=== PATIENT | female | born 1990 | race American Indian/Alaskan Native ===

== ENCOUNTER 2016-05-20 20:44 | Outpatient (CLI) | payer MEDICAID | END 2016-05-20 23:55 | disposition home or self-care (01) | LOC: TRG 20:44 | PROVIDERS: ATTEND Obstetrics & Gynecology | DX: O62.0 Primary inadequate contractions (principal); O77.9 Labor and delivery complicated by fetal stress, unspecified; Z3A.38 38 weeks gestation of pregnancy ==

== ENCOUNTER 2018-09-06 15:35 | Emergency (ER) | payer MEDICAID, OTHER ==
--- NOTE | 2018-09-06 16:12 | Emergency Department Report ---
Chief Complaint: Medical Clearance Stated Complaint: COLD THEN HOT Time Seen by Provider: 09/06/18 16:09 - HPI History of Present Illness: This is a 28 y.o. female that presents to the Er with a fever and myalgia since this morning. Current cigarette smoker 3-4 per day. Reports fever, chills, and myalgia. Denies coryza, n/v/d, abdominal pain, or chest pain. - Exam Vital Signs: Vital Signs 09/06/18 16:08 Temperature 100.1 F H Pulse Rate 98 H Respiratory 18 Rate Blood Pressure 125/87 O2 Sat by Pulse 98 Oximetry MSE screening note: Focused history and physical exam performed. Due to findings the following was ordered: CXR ACC for further evaluation. ED Disposition for MSE Condition: Stable
--- NOTE | 2018-09-06 16:54 | XRay Report ---
PROCEDURE: XR CHEST ROUTINE 2V TECHNIQUE: PA and lateral chest radiographs were obtained. HISTORY: cough and fever COMPARISONS: None. FINDINGS: Heart: Normal. Mediastinum/Vessels: Normal. Lungs/Pleural space: Normal. Bony thorax: No acute osseous abnormality. IMPRESSION: Normal examination. This document is electronically signed by Cal Roca MD., Sep 06 2018 04:52:40 PM ET
[2018-09-06] MEDS ORDERED: IBUPROFEN PO ONE (17:10)
--- NOTE | 2018-09-06 17:10 | Emergency Department Report ---
Minor Respiratory - HPI Chief Complaint: Medical Clearance Stated Complaint: COLD THEN HOT Time Seen by Provider: 09/06/18 16:09 Duration: 2 Days Severity: mild Minor Respiratory: Yes Able to Tolerate Fluids, No Rhinorrhea, No Sore Throat, No Ear Pain, No Cough, No Sick Contacts, No Hemoptysis, No Chest Pain, No Shortness of Breath, No Fever Other History: 28 yo comes in with fever and general feeling bad. here with small child. no cough. no abd pain. no dysuria. no vag dc. ED Review of Systems ROS: Stated complaint: COLD THEN HOT Other details as noted in HPI Comment: All other systems reviewed and negative ED Past Medical Hx - Past Medical History Previous Medical History?: No Hx Hypertension: No Hx Diabetes: No Hx Deep Vein Thrombosis: No Hx Renal Disease: No Hx Sickle Cell Disease: No Hx Seizures: No Hx Asthma: No - Surgical History Past Surgical History?: No - Family History Family history: no significant - Social History Smoking Status: Current Every Day Smoker Substance Use Type: None Minor Respiratory Exam - Exam General: Vital signs noted. No distress. Alert and acting appropriately. HEENT: Yes Moist Mucous Membranes, No Pharyngeal Erythema, No Pharyngeal Exudates, No Rhinorrhea, No Conjuctival Injection, No Frontal Tenderness, No Maxillary Tenderness Ear: Neither TM Bulge, Neither TM Erythema, Neither EAC Pain, Neither EAC Discharge Neck: Yes Supple, No Adenopathy Lungs: Yes Good Air Exchange, No Wheezes, No Ronchi, No Stridor, No Cough, No Labored Respirations, No Retractions, No Use of Accessory Muscles, No Other Abno rmal Lung Sounds Heart: Yes Regular, No Murmur Abdomen: Yes Normal Bowel Sounds, No Tenderness, No Peritoneal Signs Skin: No Rash, No Edema Neurologic: Alert and oriented, no deficits. Musculoskeletal: Unremarkable. ED Course Vital Signs 09/06/18 16:08 Temperature 100.1 F H Pulse Rate 98 H Respiratory 18 Rate Blood Pressure 125/87 O2 Sat by Pulse 98 Oximetry ED Medical Decision Making - Radiology Data Radiology results: report reviewed, image reviewed - Medical Decision Making Vital Signs (72 hours) 09/06/18 16:08 Temperature 100.1 F H Pulse Rate 98 H Respiratory 18 Rate Blood Pressure 125/87 O2 Sat by Pulse 98 Oximetry medicated for fever dec temp with motrin xray neg ambulatory and taking po in ER dc home with dc plan of care. Critical care attestation.: If time is entered above; I have spent that time in minutes in the direct care of this critically ill patient, excluding procedure time. ED Disposition Clinical Impression: Viral illness, Fever Disposition: DC-01 TO HOME OR SELFCARE Is pt being admited?: No Does the pt Need Aspirin: No Condition: Stable Instructions: Fever in Adults (ED) Additional Instructions: DIET TOLERATED MEDS ORDERED TODAY IN ER FOLLOW INSTRUCTIONS ON THE BOTTLE FOLLOW UP PCP WITHIN 48 HOURS TO ENSURE YOU ARE GETTING BETTER ACTIVITY TOLERATED MOTRIN OR TYLENOL FOR PAIN OR FEVER RETURN TO THE ER FOR WORSENING SYMPTOMS NOT RELIEVED BY YOUR MEDICATIONS. IF IN 24 HOURS YOU FEEL WORSE THEN START THE ANTIBIOTIC Referrals: HEYDI JACOBO MD [Primary Care Provider] - 3-5 Days Time of Disposition: 18:27
[2018-09-06 18:46] LABS: HCG Qualitative,Urine Negative (Negative)
[2018-09-06 18:49] LABS: Bacteria,Urine 1+ /HPF (Negative); Bilirubin,Urine NEG (Negative); Blood,Urine NEG (Negative); Color,Urine Yellow (Yellow); Mucus,Urine FEW /HPF; Protein,Urine <15 mg/dL mg/dL (Negative)
[2018-09-06 18:51] VITALS: BP 127/82
== END 2018-09-06 18:50 | disposition home or self-care (01) ==
LOC: ED 15:35
DX: B34.9 Viral infection, unspecified (principal); F17.200 Nicotine dependence, unspecified, uncomplicated
CPT/HCPCS: 71046; 81001; 81025

== ENCOUNTER 2019-09-07 01:02 | Emergency (ER) | payer OTHER ==
--- NOTE | 2019-09-07 02:15 | XRay Report ---
Left ankle-3 views Left foot-3 views INDICATION: Fall today with generalized ankle and foot pain. COMPARISON: None. IMPRESSION: Mild soft tissue swelling about the ankle with no acute fracture or malalignment. Mild h allux valgus deformity with otherwise unremarkable appearance of the foot. No significant DJD. Signer Name: Bret Swift MD Signed: 09/07/2019 2:10 AM Workstation Name: [email or web address]
[2019-09-07] MEDS ORDERED: HYDROcodone/ACETAMINOPHEN 7.5-325MG TAB PO ONE (03:27)
[2019-09-07] MEDS ORDERED: IBUPROFEN 600 MG TAB PO ONE (03:27)
[2019-09-07] MEDS ORDERED: ONDANSETRON 4 MG ODT TAB PO ONE (03:27)
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
[2019-09-07 06:17] VITALS: BP 122/56
== END 2019-09-07 04:09 | disposition home or self-care (01) ==
LOC: ED 01:02
DX: S93.402A Sprain of unspecified ligament of left ankle, initial encounter (principal); S93.602A Unspecified sprain of left foot, initial encounter; Z79.1 Long term (current) use of non-steroidal anti-inflammatories (NSAID); Z79.2 Long term (current) use of antibiotics; Z79.899 Other long term (current) drug therapy; W18.09XA Striking against other object with subsequent fall, initial encounter; Y93.89 Activity, other specified; Y92.89 Other specified places as the place of occurrence of the external cause; Y99.8 Other external cause status
CPT/HCPCS: Q0162

== ENCOUNTER 2020-01-20 16:40 | Emergency (ER) | payer SELFPAY ==
[2020-01-20 16:59] VITALS: BP 127/75
--- NOTE | 2020-01-20 18:16 | Emergency Department Report ---
- General Chief complaint: Skin/Abscess/Foreign Body Stated complaint: BUG BITE Time Seen by Provider: 01/20/20 17:36 Source: patient Mode of arrival: Ambulatory Limitations: No Limitations - History of Present Illness Initial comments: 29-year-old female states she woke up with a insect bite to her left neck. She reports pain and swelling to the left neck she denies fever and chills she has no difficulty swallowing no difficulty with breathing no lip or tongue swelling MD complaint: insect bite/sting Location: neck Severity: mild Improves with: none Worsens with: none Context: none Associated symptoms: denies other symptoms Treatments Prior to Arrival: none - Related Data Previous Rx's Medication Instructions Recorded Last Taken Type Amoxicillin [Trimox CAP] 500 mg PO BID #20 capsule 09/06/18 Unknown Rx Cyclobenzaprine [Flexeril] 10 mg PO Q8H PRN #15 tablet 09/07/19 Unknown Rx Ibuprofen [Motrin] 800 mg PO Q8HR PRN #24 tablet 09/07/19 Unknown Rx Cephalexin [Keflex] 750 mg PO BID 7 Days #14 capsule 01/20/20 Unknown Rx Allergies Allergy/AdvReac Type Severity Reaction Status Date / Time No Known Allergies Allergy Verified 09/06/18 15:49 Abscess Boil HPI - HPI Chief Complaint: Skin/Abscess/Foreign Body Stated Complaint: BUG BITE Time Seen by Provider: 01/20/20 17:36 Home Medications: Previous Rx's Medication Instructions Recorded Last Taken Type Amoxicillin [Trimox CAP] 500 mg PO BID #20 capsule 09/06/18 Unknown Rx Cyclobenzaprine [Flexeril] 10 mg PO Q8H PRN #15 tablet 09/07/19 Unknown Rx Ibuprofen [Motrin] 800 mg PO Q8HR PRN #24 tablet 09/07/19 Unknown Rx Cephalexin [Keflex] 750 mg PO BID 7 Days #14 capsule 01/20/20 Unknown Rx Allergies/Adverse Reactions: Allergies Allergy/AdvReac Type Severity Reaction Status Date / Time No Known Allergies Allergy Verified 09/06/18 15:49 ED Review of Systems ROS: Stated complaint: BUG BITE Other details as noted in HPI Comment: All other systems reviewed and negative Constitutional: denies: chills, fever ENT: denies: ear pain, throat pain, dental pain, congestion Respiratory: denies: cough, shortness of breath, wheezing Cardiovascular: denies: chest pain, palpitations, edema, syncope Endocrine: denies: excessive sweating, flushing, increased urine, unexplained weight gain Gastrointestinal: denies: abdominal pain, nausea, constipation, hematemesis Genitourinary: denies: dysuria, frequency Skin: denies: rash, change in color Neurological: denies: headache, weakness, numbness, paresthesias ED Past Medical Hx - Past Medical History Previous Medical History?: No Hx Hypertension: No Hx Diabetes: No Hx Deep Vein Thrombosis: No Hx Renal Disease: No Hx Sickle Cell Disease: No Hx Seizures: No Hx Asthma: No - Surgical History Past Surgical History?: No - Social History Smoking Status: Never Smoker Substance Use Type: Alcohol - Medications Home Medications: Home Medications Medication Instructions Recorded Confirmed Last Taken Type Amoxicillin [Trimox CAP] 500 mg PO BID #20 capsule 09/06/18 Unknown Rx Cyclobenzaprine [Flexeril] 10 mg PO Q8H PRN #15 tablet 09/07/19 Unknown Rx Ibuprofen [Motrin] 800 mg PO Q8HR PRN #24 tablet 09/07/19 Unknown Rx Cephalexin [Keflex] 750 mg PO BID 7 Days #14 capsule 01/20/20 Unknown Rx ED Physical Exam - General Limitations: No Limitations General appearance: alert, in no apparent distress - Head Head exam: Present: atraumatic - Eye Eye exam: Present: normal appearance - ENT ENT exam: Present: normal exam, normal orophraynx, mucous membranes moist - Neck Neck exam: Present: other (left neck insect bite. + ) - Respiratory Respiratory exam: Present: normal lung sounds bilaterally. Absent: respiratory distress - Cardiovascular Cardiovascular Exam: Present: regular rate, normal heart sounds - Extremities Exam Extremities exam: Present: normal inspection, normal capillary refill - Back Exam Back exam: Present: normal inspection, full ROM - Neurological Exam Neurological exam: Present: alert, oriented X3 - Psychiatric Psychiatric exam: Present: normal affect, normal mood - Skin Skin exam: Present: warm, dry, erythema (left neck ) ED Course Vital Signs 01/20/20 16:55 Temperature 97.9 F Pulse Rate 97 H Respiratory 14 Rate Blood Pressure 127/75 O2 Sat by Pulse 99 Oximetry ED Medical Decision Making - Medical Decision Making Left neck insect bite with erythrema and swelling. Skin intact. Infected insect bite Treatment with daily soap and water wash apply neosporin and Rx for Cephalexin Critical care attestation.: If time is entered above; I have spent that time in minutes in the direct care of this critically ill patient, excluding procedure time. ED Disposition Clinical Impression: Insect bite Qualifiers: Encounter type: initial encounter Site of insect bite: unspecified part of neck Qualified Code(s): S10.96XA - Insect bite of unspecified part of neck, initial encounter; W57.XXXA - Bitten or stung by nonvenomous insect and other nonvenomous arthropods, initial encounter Disposition: DC-01 TO HOME OR SELFCARE Is pt being admited?: No Does the pt Need Aspirin: No Condition: Stable Instructions: Insect Bite or Sting (ED) Additional Instructions: Wash area with soap and water. Apply neosporin ointment daily. Follow up or return to the ER for increasing pain, swelling fever or chills. Prescriptions: Cephalexin [Keflex] 750 mg PO BID 7 Days #14 capsule Referrals: YASMIN RENO MD [Staff Physician] - 3-5 Days Time of Disposition: 18:17
== END 2020-01-20 18:30 | disposition home or self-care (01) ==
LOC: ED 16:40
DX: S11.95XA Open bite of unspecified part of neck, initial encounter (principal); Z79.899 Other long term (current) drug therapy; W57.XXXA Bitten or stung by nonvenomous insect and other nonvenomous arthropods, initial encounter; Y93.89 Activity, other specified; Y92.89 Other specified places as the place of occurrence of the external cause; Y99.8 Other external cause status
CPT/HCPCS: 99282

== ENCOUNTER 2020-03-07 22:26 | Emergency (ER) | payer SELFPAY | END 2020-03-07 22:30 | disposition left against medical advice (07) | LOC: ED 22:26 | DX: Z04.1 Encounter for examination and observation following transport accident (principal); Z53.21 Procedure and treatment not carried out due to patient leaving prior to being seen by health care provider ==

== ENCOUNTER 2020-11-03 23:49 | Outpatient (CLI) | payer MEDICAID ==
[2020-11-04] MEDS ORDERED: LACTATED RINGERS 1,000 ML ONE (01:18)
[2020-11-04 01:27] VITALS: BP 108/58
[2020-11-04] MEDS ORDERED: LACTATED RINGERS 1,000 ML IV SCH (01:30)
[2020-11-04 02:44] LABS: Bacteria,Urine 4+ /HPF (Negative); Bilirubin,Urine NEG (Negative); Blood,Urine SM (Negative); Color,Urine Yellow (Yellow); Mucus,Urine FEW /HPF; Protein,Urine <15 mg/dL mg/dL (Negative); Urobilinogen,Urine < 2.0 mg/dL (<2.0)
--- NOTE | 2020-11-04 03:05 | Ultrasound Report ---
ULTRASOUND OBSTETRIC LIMITED INDICATION / CLINICAL INFORMATION: abdominal pain. Clinical Gestational Age (GA) in weeks, days: 39 weeks 3 days TECHNIQUE: Transabdominal. COMPARISON: None available. FINDINGS: HEART RATE (beats per minute): 137 PRESENTATION: Cephalic. ADDITIONAL FINDINGS: Placenta is anterior. No evidence of placental abruption. IMPRESSION: 1. Single live intrauterine in cephalic presentation with heart rate measuring 137 b pm. 2. No significant abnormality. No evidence of placental abruption. Signer Name: Milan David MD Signed: 11/04/2020 3:00 AM Workstation Name: [id number]
== END 2020-11-04 03:18 | disposition home or self-care (01) ==
LOC: TRG 23:49 → APU 23:56 → TRG 11-04 03:18
PROVIDERS: ATTEND Obstetrics & Gynecology
DX: O26.893 Other specified pregnancy related conditions, third trimester (principal); R19.7 Diarrhea, unspecified; R10.9 Unspecified abdominal pain; O99.333 Smoking (tobacco) complicating pregnancy, third trimester; F17.210 Nicotine dependence, cigarettes, uncomplicated; Z3A.39 39 weeks gestation of pregnancy
CPT/HCPCS: 59025; 76815; 81001; 87086; 96360; 96361; J7120

== ENCOUNTER 2020-11-28 17:46 | Inpatient (IN) | payer MEDICAID ==
[2020-11-28] MEDS ORDERED: TERBUTALINE 1 MG/1 ML INJ SUB-Q PRN (21:26)
[2020-11-28] MEDS ORDERED: ePHEDrine SULFATE 50 MG/1 ML INJ IV PRN (21:26)
[2020-11-28] MEDS ORDERED: MINERAL OIL 30 ML ORAL LIQD PO PRN (21:26)
[2020-11-28] MEDS ORDERED: miSOPROStol 200 MCG TAB PR PRN (21:26)
[2020-11-28] MEDS ORDERED: fentaNYL 100 MCG/2 ML INJ IV PRN (21:26)
[2020-11-28] MEDS ORDERED: CARBOPROST TROMETHAMINE 250 MCG/1 ML INJ IM PRN (21:26)
[2020-11-28] MEDS ORDERED: NalbUPHINE 10 MG/1 ML INJ IV PRN (21:26)
[2020-11-28] MEDS ORDERED: AMPICILLIN/NS 2 GM/100 ML 2 GM/100 ML BAG IV ONE (21:26)
[2020-11-28] MEDS ORDERED: OXYTOCIN 10 UNIT/1 ML INJ IM PRN (21:26)
[2020-11-28] MEDS ORDERED: METHYLERGONOVINE MALEATE 0.2 MG/ML VIAL IM PRN (21:26)
[2020-11-28] MEDS ORDERED: LOPERAMIDE 2 MG CAP PO PRN (21:26)
[2020-11-28] MEDS ORDERED: LACTATED RINGERS 1,000 ML IV SCH (21:30)
[2020-11-28] MEDS ORDERED: OXYTOCIN DRIP 30 UNITS/500 ML BAG IV SCH (22:00)
[2020-11-28] MEDS ORDERED: LIDOCAINE (2%) 20 MG/1 ML VIAL 20 ML MDV INFILTRATI ONE (22:26)
--- NOTE | 2020-11-28 22:43 | History and Physical Report ---
History of Present Illness Date of examination: 11/28/20 Date of admission: 11/28/20 Chief complaint: c/o uc since this am History of present illness: 30 y/o Single AA presents to [facility] @ 39.4 wks as a walkin pt with c/o uc x several hours. Pt denies VB, LOF, and admits to active FM. Pt states she initiated her pnc early preg at [facility], [place]. She states she has had an uncomplicated preg and denies HSV. Pt reports a hx of spon ab (twins 2018) gest age was between 3-4 mos per pt, PTB@ 34 wks (2014), obesity, daily cigg smoker, and pos GBS. According to the pt, her surgical and family medical hx is unremarkable. No records are available. Pt was admitted to L&D for delivery. Past History Past Medical History: other (hx of spon ab twins gest age was between 3-4 months per pt (2018), hx of PTB @ 34 wks (2014)) Past Surgical History: no surgical history Family/Genetic History: none Social history: single, smoking, full code - Obstetrical History Expected Date of Delivery: 12/01/20 Actual Gestation: 39 Week(s) 4 Day(s) : 6 Para: 4 Hx # Term Pregnancies: 3 Number of Pregnancies: 1 Spontaneous Abortions: 1 Induced : 0 Number of Living Children: 4 Medications and Allergies Allergies Allergy/AdvReac Type Severity Reaction Status Date / Time No Known Allergies Allergy Verified 10/25/20 18:01 Home Medications Medication Instructions Recorded Confirmed Last Taken Type Amoxicillin [Trimox CAP] 500 mg PO BID #20 capsule 09/06/18 Unknown Rx Cyclobenzaprine [Flexeril] 10 mg PO Q8H PRN #15 tablet 09/07/19 Unknown Rx Ibuprofen [Motrin] 800 mg PO Q8HR PRN #24 tablet 09/07/19 Unknown Rx Cephalexin [Keflex] 750 mg PO BID 7 Days #14 capsule 01/20/20 Unknown Rx Active Meds: Active Medications Carboprost Tromethamine (Carboprost Tromethamine 250 Mcg/1 Ml Inj) 250 mcg IM ONCE PRN PRN Reason: Uterine Bleeding Ephedrine Sulfate (Ephedrine Sulfate 50 Mg/1 Ml Inj) 10 mg IV Q2M PRN PRN Reason: Hypotension Fentanyl (Fentanyl 100 Mcg/2 Ml Inj) 100 mcg IV Q2H PRN PRN Reason: Pain,Severe (7-10) LABOR PAIN Lactated Ringer's (Lactated Ringers) 1,000 mls @ 125 mls/hr IV DIRECT BENITA Oxytocin/Sodium Chloride (Pitocin/Ns 30 Unit/500ml) 30 units in 500 mls @ 2 mls/hr IV TITR BENITA; Protocol Loperamide HCl (Loperamide 2 Mg Cap) 2 mg PO ONCE PRN PRN Reason: give with Hemabate Methylergonovine Maleate (Methylergonovine Maleate 0.2 Mg/Ml Vial) 0.2 mg IM ONCE PRN PRN Reason: Uterine Bleeding Mineral Oil (Mineral Oil 30 Ml Oral Liqd) 30 ml PO QHS PRN PRN Reason: Constipation Misoprostol (Misoprostol 200 Mcg Tab) 800 mcg TX ONCE PRN PRN Reason: Uterine Bleeding Nalbuphine HCl (Nalbuphine 10 Mg/1 Ml Inj) 10 mg IV Q2H PRN PRN Reason: Pain, Moderate (4-6) Oxytocin (Oxytocin 10 Unit/1 Ml Inj) 10 unit IM ONCE PRN PRN Reason: Uterine Bleeding Terbutaline Sulfate (Terbutaline 1 Mg/1 Ml Inj) 0.25 mg SUB-Q ONCE PRN PRN Reason: Hyperstimulation/Hypertonicity Review of Systems All systems: negative Eyes: deferred Ears, nose, mouth and throat: deferred Breasts: normal Genitourinary: normal appearance Rectal Exam: normal exam-external/orifice - Vital Signs Vital signs: Vital Signs Temp Pulse Resp BP Pulse Ox 98.4 F 112 H 16 112/82 99 11/28/20 17:59 11/28/20 17:59 11/28/20 17:59 11/28/20 17:59 11/28/20 17:59 Temp Pulse Resp BP Pulse Ox 98.7 F 102 H 16 116/72 100 11/28/20 22:01 11/28/20 22:01 11/28/20 17:59 11/28/20 22:01 11/28/20 21:50 - Physical Exam Breasts: Positive: normal Abdomen: Positive: normal appearance, soft, normal bowel sounds Genitourinary (Female): Positive: normal external genitalia, normal perenium Vulva: both: normal Vagina: Positive: normal moisture Uterus: Positive: enlarged, normal contour, other (gravid) Adnexa: both: normal Anus/Rectum: Positive: normal perianal skin Extremities: Positive: normal - Obstetrical FHR: auscultation normal, category 1 Uterine Contraction Monitor Mode: External Cervical Dilatation: 5 Cervical Effacement Percentage: 50 station: -2 Uterine Contraction Frequency (min): irreg Uterine Contraction Pattern: Irregular Uterine Tone Measurement Phase: Resting Uterine Contraction Intensity: Mild Results Result Diagrams: 11/28/20 22:05 All other labs normal. Assessment and Plan A: IUP@ 39.4wks Walkin pt- No records GBS pos per pt Hx spon ab (twins) Hx PTB@ 34 wks 2015 Daily cigg smoker Obesity P: Admit to L&D Continuos monitoring Pain med/Epidural prn GBS protocal Notify NICU Anticipate - Patient Problems (1) Supervision of normal IUP (intrauterine ) in multigravida Current Visit: Yes Status: Acute (2) Positive GBS test Current Visit: Yes Status: Acute
[2020-11-28 22:54] LABS: Basophils % (Auto) 0.3 % (0.0-1.8); Eosinophils # (Auto) 0.2 K/mm3 (0.0-0.4); Eosinophils % (Auto) 1.7 % (0.0-4.3); Hematocrit 28.6 % (30.3-42.9); Hemoglobin 9.3 gm/dl (10.1-14.3); Lymphocytes % (Auto) 20.7 % (13.4-35.0); Mean Corpuscular HGB Conc 33 % (30-34); Mean Corpuscular Volume 75 fl (79-97); Monocytes # (Auto) 0.5 K/mm3 (0.0-0.8); Monocytes % (Auto) 5.1 % (0.0-7.3); Platelet Count 263 K/mm3 (140-440); Red Cell Distribution Width 16.6 % (13.2-15.2)
[2020-11-28 23:15] LABS: Alanine Aminotransferase 6 units/L (7-56); Albumin 3.3 g/dL (3.9-5); Blood Urea Nitrogen 7 mg/dL (7-17); Calcium 8.8 mg/dL (8.4-10.2); Hemolysis Index 0
[2020-11-28 23:19] LABS: BUN/Creatinine Ratio 14
--- NOTE | 2020-11-29 00:06 | Event Note ---
Date: 11/29/20 pt evaluated at bedside by me. Pelvic now 6-/-1 and pt desires epidural. Pt receiving bolus for IV hydration and pt has received 1st dose of ampicillin. Pt declines IV pain med at this time. Pitocin at 2mu/min. FHR category I and ctx 6-7mins apart. Expect
[2020-11-29] MEDS ORDERED: NALOXONE 2 MG/2 ML INJ IV PRN (00:34)
[2020-11-29] MEDS ORDERED: ePHEDrine SULFATE 50 MG/1 ML INJ IV PRN (00:34)
--- NOTE | 2020-11-29 00:34 | Anesthesia Consultation ---
Anesthesia Consult and Med Hx Date of service: 11/29/20 - Pulmonary Exam CTA: Yes - Cardiac Exam Cardiac Exam: RRR - Pre-Operative Health Status ASA Pre-Surgery Classification: ASA3 Proposed Anesthetic Plan: Epidural - Pulmonary Hx Smoking: Yes Hx Asthma: No - Cardiovascular System Hx Hypertension: No - Central Nervous System Hx Seizures: No Hx Psychiatric Problems: No - Endocrine Hx Renal Disease: No Hx Hypothyroidism: No Hx Hyperthyroidism: No - Hematic Hx Anemia: No Hx Sickle Cell Disease: No - Other Systems Hx Alcohol Use: No Hx Obesity: Yes
[2020-11-29] MEDS ORDERED: fentaNYL-BUPIV 2 MCG/ML-0.125% 200 MCG/100 ML BAG EPIDURAL SCH (01:00)
--- NOTE | 2020-11-29 01:01 | Progress Note ---
Labor Epidural - Labor Epidural Start Time: 00:44 Stop Time: 00:50 Performed by:: JOHNNA MARIE Procedure: Patient is requesting epidural for labor pain. H&P, and labs reviewed. Procedure explained, questions answered, consent obtained. Patient in sitting position with blood pressure cuff and pulse ox on and working. Timeout performed immediately before start of procedure. Sterile chlorahexadine 0.5% prep/drape. 3 mL 1% lidocaine skin wheal at L[3]-L[4]. 18-gauge SweetIQ Analyticstead epidural needle advanced to [id number] with saline at 9 cm. 27-gauge spinal needle advanced until clear, free-flowing CSF. Intrathecal dexmedetomidine [5] mcg administered and needle removed. Epidural catheter advanced to 13 cm, negative aspiration for blood, positive for csf, positive test dose 3 ml 1.5% lidocaine with epinephrine with leg numbness. Sterile steri-strips and tegaderm applied, followed by tape reinforcement. Patient tolerated procedure well. RN informed intrathecal catheter and to run infusion at 2 ml/hr with 1 ml/hr prn bolus.
[2020-11-29] MEDS ORDERED: LIDOCAINE (2%) 20 MG/1 ML VIAL 20 ML MDV INFILTRATI ONE (01:43)
[2020-11-29] MEDS ORDERED: AMPICILLIN/NS 1 GM/50 ML 1 GM/50 ML BAG IV SCH (02:00)
--- NOTE | 2020-11-29 03:26 | Procedure Note ---
OB Delivery Note - Delivery Date of Delivery: 11/29/20 Surgeon: KAROLINE SHELTON Estimated blood loss: 300cc - Vaginal Delivery presentation: vertex Delivery position: OA Intrapartum events: shoulder dystocia, other(please specify) (GBS+ per pt report and received 2 doses today in labor of ampicillin) Delivery induction: none Delivery augmentation: pitocin Delivery monitor: external FHT, external uterine Route of delivery: Delivery placenta: spontaneous Episiotomy: none Delivery laceration: 1st degree Delivery repair: chromic Anesthesia: epidural Delivery comments: SAVD of viable male infant with shoulder dystocia and maneuvers of McRobert's, suprapubic and cork screw technique used in a counter clockwise direction. Spontaneous delivery of placenta with 3vessel cord. Umbilical artery gas pH 7.26 and BE-5; APGARS 4/9. Pt sustained 1st posterior vaginal wall laceration and same repaired with 2-0 chromic running locked suture and single figure of 8 as well. Excellent hemostasis. Bimanual massage done and IV pitocin given and cytotec 800mcg given per rectum for overdistended uterus and grandmultiparous. Wt. 4740g. Copious amount of clear amniotic fluid and meconium passed as was delivering. NICU present at delivery. - A at 1 minute: 4 at 5 minutes: 9 Gender: Male (clear amniotic fluid; Umb artery gas pH 7.26 BE-5. wt 4740g)
[2020-11-29] MEDS ORDERED: ACETAMINOPHEN 325 MG TAB PO PRN (04:47)
[2020-11-29] MEDS ORDERED: WITCH HAZEL/ GLYCERIN PAD TP PRN (04:47)
[2020-11-29] MEDS ORDERED: MAGNESIUM HYDROXIDE (MOM) ORAL LIQD UDC PO PRN (04:47)
[2020-11-29] MEDS ORDERED: ONDANSETRON 4 MG/2 ML INJ IV PRN (04:47)
[2020-11-29] MEDS ORDERED: diphenhydrAMINE 25 MG CAP PO PRN (04:47)
[2020-11-29] MEDS ORDERED: PROMETHAZINE 25 MG RECT SUPP PR PRN (04:47)
[2020-11-29] MEDS ORDERED: miSOPROStol 100 MCG TAB PR PRN (04:47)
[2020-11-29] MEDS ORDERED: PROMETHAZINE 25 MG TAB PO PRN (04:47)
[2020-11-29] MEDS ORDERED: LANOLIN/ZINC/DIMETHICONE (LANSINOH) 7 GM TP PRN (04:47)
[2020-11-29] MEDS: IBUPROFEN 600 MG TAB PO SCH ×4 (05:15→23:29)
[2020-11-29] MEDS: oxyCODONE /ACETAMINOPHEN 5-325MG TAB PO PRN (06:53)
[2020-11-29] MEDS: PRENATAL VIT27-FE FUMARATE-FOLIC ACID VIT TAB PO SCH (10:06)
[2020-11-29 13:15] LABS: Bilirubin,Urine NEG (Negative); Blood,Urine LG (Negative); Color,Urine Yellow (Yellow); Urobilinogen,Urine < 2.0 mg/dL (<2.0)
[2020-11-29 13:16] LABS: RBC,Urine > 182.0 /HPF (0.0-6.0)
[2020-11-29 13:18] LABS: Amphetamine Screen,Urine Negative; Benzodiazepines Screen,Urine Negative; Cannabinoid Screen,Urine Negative; Cocaine Screen,Urine Negative; Methadone Screen,Urine Negative; Opiate Screen,Urine Negative
[2020-11-29 18:27] LABS: Hematocrit 28.6 % (30.3-42.9); Hemoglobin 9.3 gm/dl (10.1-14.3)
--- NOTE | 2020-11-29 20:27 | Post Anesthesia Evaluation ---
- Post Anesthesia Evaluation Patient Participated: Yes Airway Patent: Yes Stable Respiratory Function: Yes Nausea/Vomiting: No Temp > 96.8F: Yes Pain Manageable: Yes Adequeate Hydration: Yes Anesthesia Complications: No Block Receding Appropriately: Yes
[2020-11-30] MEDS: IBUPROFEN 600 MG TAB PO SCH (05:13)
--- NOTE | 2020-11-30 10:01 | Progress Note ---
Assessment and Plan routine pp care. - Patient Problems (1) Positive GBS test Current Visit: Yes Status: Acute (2) Supervision of normal IUP (intrauterine ) in multigravida Current Visit: Yes Status: Acute Subjective - Subjective Date of service: 11/30/20 Principal diagnosis: term preg, labor Interval history: doing well. hct=28%. Patient reports: appetite normal, voiding normally : doing well Objective - Vital Signs Latest vital signs: Vital Signs Temp Pulse Resp BP BP Pulse Ox Pulse Ox 11/30/20 07:45 98.1 F 87 18 105/69 98 11/30/20 00:25 97.9 F 75 20 108/63 99 11/29/20 19:30 98 11/29/20 15:31 78 123/83 100 11/29/20 11:56 81 108/59 100 Intake and Output 11/29/20 11/30/20 11/30/20 23:59 07:59 15:59 Intake Total 540 360 240 Output Total 1 Balance 539 360 240 Intake: Oral 540 360 240 Output: Urine 1 Void 1 Other: Total, Intake Amount 100 120 240 Total, Output Amount 1 # Voids Void 1 1 1 - Exam Breasts: Present: deferred, normal Abdomen: Present: normal appearance, soft, other (wound non-tender.) Extremities: Present: normal Incision: Present: normal, dry, intact - Labs Labs: Abnormal lab results 11/29/20 11/29/20 Range/Units 11:30 18:00 Hgb 9.3 L (10.1-14.3) gm/dl Hct 28.6 L (30.3-42.9) % Urine WBC (Auto) 20.0 H (0.0-6.0) /HPF
[2020-11-30] MEDS: oxyCODONE /ACETAMINOPHEN 5-325MG TAB PO PRN (10:14)
[2020-11-30] MEDS: PRENATAL VIT27-FE FUMARATE-FOLIC ACID VIT TAB PO SCH (10:20)
--- NOTE | 2020-11-30 15:34 | Discharge Summary ---
Providers - Providers Date of Admission: 11/29/20 03:31 Date of discharge: 11/30/20 Attending physician: KAROLINE SHELTON Primary care physician: KAROLINE SHELTON Hospitalization Delivery: Other procedures: none complications: none Discharge diagnosis: IUP at term delivered Hospital course: benign. Condition at discharge: Good Disposition: DC-01 TO HOME OR SELFCARE - Discharge Diagnoses (1) Positive GBS test Status: Acute (2) Supervision of normal IUP (intrauterine ) in multigravida Status: Acute Plan - Provider Discharge Summary Additional instructions: [] Smoking cessation referral if applicable(refer to patient education folder for contact #) [] Refer to [facility]'s [facility] Booklet Call your doctor immediately for: * Fever > 100.5 * Heavy vaginal bleeding ( >1 pad per hour) * Severe persistent headache * Shortness of breath * Reddened, hot, painful area to leg or breast * Drainage or odor from incision. * Keep incision clean and dry at all times and follow doctor's instructions regarding bathing/showering - Follow up plan
[2020-11-30 16:47] VITALS: BP 122/78
== END 2020-11-30 19:40 | disposition home or self-care (01) | DRG 775 ==
LOC: TRG 17:46 → APU 17:49 → LD 22:50 → TRG 11-29 03:21 → LD 11-29 03:31 → OB 11-29 04:46
PROVIDERS: ADMIT Obstetrics & Gynecology; ATTEND Obstetrics & Gynecology
PROC: 10E0XZZ Delivery of Products of Conception, External Approach (ICD-10-PCS; principal; 2020-11-29)
PROC: 3E0R3BZ Introduction of Anesthetic Agent into Spinal Canal, Percutaneous Approach (ICD-10-PCS; 2020-11-29)
PROC: 00HU33Z Insertion of Infusion Device into Spinal Canal, Percutaneous Approach (ICD-10-PCS; 2020-11-29)
PROC: 4A033R1 Measurement of Arterial Saturation, Peripheral, Percutaneous Approach (ICD-10-PCS; 2020-11-29)
DX: O99.824 Streptococcus B carrier state complicating childbirth (principal); Z3A.39 39 weeks gestation of pregnancy; Z37.0 Single live birth; Z20.822 Contact with and (suspected) exposure to COVID-19; O99.334 Smoking (tobacco) complicating childbirth; F17.210 Nicotine dependence, cigarettes, uncomplicated; O99.214 Obesity complicating childbirth; O66.0 Obstructed labor due to shoulder dystocia; O70.0 First degree perineal laceration during delivery; O77.0 Labor and delivery complicated by meconium in amniotic fluid
CPT/HCPCS: 36415; 59025; 80053; 80307; 81001; 82803; 82805; 85014; 85018; 85025; 86592; 86706; 86762; 86850; 86900; 86901; 87086; 87806; 96360; 96361; G0378; J0290; J2590; U0003

== ENCOUNTER 2021-01-27 16:37 | Emergency (ER) | payer MEDICAID ==
[2021-01-27 17:13] VITALS: BP 121/80
[2021-01-27] MEDS ORDERED: predniSONE 20 MG TAB PO ONE (18:56)
--- NOTE | 2021-01-27 19:01 | Emergency Department Report ---
ED General Adult HPI - General Chief complaint: Extremity Injury, Upper Stated complaint: WASP STING WITH EDEMA Time Seen by Provider: 01/27/21 18:42 Source: patient Mode of arrival: Ambulatory Limitations: No Limitations - History of Present Illness Initial comments: 30-year-old -[place] female patient presents with complaints of left arm pain and swelling x yesterday. Patient states she was bitten by wasp yesterday. She admits to itching states the swelling has been worsening throughout the day. She denies any throat pain, shortness of breath, wheezing, difficulty moving her hand or arm, fever, or redness. She rates her current pain as a 5/10 in severity. She has not tried any OTC medication for symptoms. Patient denies any past medical history - Related Data Previous Rx's Medication Instructions Recorded Last Taken Type Acetaminophen [Acetaminophen TAB] 650 mg PO Q4H PRN tablet 11/30/20 Unknown Rx Glycerin/ Witch Isabelle Pad [Tucks 1 each TP PRN PRN box 11/30/20 Unknown Rx Pad] Lanolin/Zinc/Dimethicone [Lansinoh] 1 applic TP PRN PRN oint 11/30/20 Unknown Rx Loperamide [Imodium] 2 mg PO ONCE PRN capsule 11/30/20 Unknown Rx Magnesium Hydroxide [Milk of 30 ml PO HS PRN oral.liqd 11/30/20 Unknown Rx Magnesia] Mineral Oil 30 ml PO QHS PRN oral.liqd 11/30/20 Unknown Rx bisacodyL [Dulcolax suppos] 10 mg TX BID PRN supp.rect 11/30/20 Unknown Rx diphenhydrAMINE [Benadryl CAP] 25 mg PO Q6H PRN capsule 11/30/20 Unknown Rx Famotidine [Pepcid] 20 mg PO BID 7 Days #14 tablet 01/27/21 Unknown Rx Loratadine [Claritin] 10 mg PO QDAY 7 Days #7 tablet 01/27/21 Unknown Rx Prednisone [predniSONE 10 mg 10 mg PO .TAPER #1 tab.ds.pk 01/27/21 Unknown Rx (6-Day Pack, 21 Tabs)] Allergies Allergy/AdvReac Type Severity Reaction Status Date / Time No Known Allergies Allergy Verified 01/27/21 17:10 ED Review of Systems ROS: Stated complaint: WASP STING WITH EDEMA Other details as noted in HPI Constitutional: denies: chills, diaphoresis, fever, malaise, weakness Respiratory: denies: cough, shortness of breath Musculoskeletal: denies: arthralgia Skin: denies: rash, lesions, change in color Neurological: denies: numbness, paresthesias ED Past Medical Hx - Past Medical History Hx Hypertension: No Hx Diabetes: No Hx Deep Vein Thrombosis: No Hx Renal Disease: No Hx Sickle Cell Disease: No Hx Seizures: No Hx Asthma: No Hx HIV: No - Social History Smoking Status: Current Every Day Smoker - Medications Home Medications: Home Medications Medication Instructions Recorded Confirmed Last Taken Type Acetaminophen [Acetaminophen TAB] 650 mg PO Q4H PRN tablet 11/30/20 Unknown Rx Glycerin/ Witch Isabelle Pad [Tucks 1 each TP PRN PRN box 11/30/20 Unknown Rx Pad] Lanolin/Zinc/Dimethicone [Lansinoh] 1 applic TP PRN PRN oint 11/30/20 Unknown Rx Loperamide [Imodium] 2 mg PO ONCE PRN capsule 11/30/20 Unknown Rx Magnesium Hydroxide [Milk of 30 ml PO HS PRN oral.liqd 11/30/20 Unknown Rx Magnesia] Mineral Oil 30 ml PO QHS PRN oral.liqd 11/30/20 Unknown Rx bisacodyL [Dulcolax suppos] 10 mg TX BID PRN supp.rect 11/30/20 Unknown Rx diphenhydrAMINE [Benadryl CAP] 25 mg PO Q6H PRN capsule 11/30/20 Unknown Rx Famotidine [Pepcid] 20 mg PO BID 7 Days #14 tablet 01/27/21 Unknown Rx Loratadine [Claritin] 10 mg PO QDAY 7 Days #7 tablet 01/27/21 Unknown Rx Prednisone [predniSONE 10 mg 10 mg PO .TAPER #1 tab.ds.pk 01/27/21 Unknown Rx (6-Day Pack, 21 Tabs)] ED Physical Exam - General Limitations: No Limitations General appearance: alert, in no apparent distress - Head Head exam: Present: atraumatic, normocephalic - Eye Eye exam: Present: normal appearance. Absent: scleral icterus - Respiratory Respiratory exam: Absent: respiratory distress - Cardiovascular Cardiovascular Exam: Present: regular rate - Extremities Exam Extremities exam: Present: full ROM, other (Swelling with mild tenderness to palpation noted to left forearm, hand, and fingers; normal radial and ulnar pulse noted; no erythema noted; no warmth to the skin or joints noted; patient has full range of motion of the wrist palm and fingers) - Neurological Exam Neurological exam: Present: alert, oriented X3 - Psychiatric Psychiatric exam: Present: normal affect, normal mood - Skin Skin exam: Present: warm, dry, intact, normal color. Absent: rash ED Course Vital Signs 01/27/21 17:09 Temperature 98.2 F Pulse Rate 73 Blood Pressure 121/80 O2 Sat by Pulse 95 Oximetry ED Medical Decision Making - Medical Decision Making 30-year-old -[place] female patient presents with complaints of left arm pain and swelling x yesterday. Patient states she was bitten by wasp yesterday. She admits to itching states the swelling has been worsening throughout the day. She denies any throat pain, shortness of breath, wheezing, difficulty moving her hand or arm, fever, or redness. She rates her current pain as a 5/10 in severity. She has not tried any OTC medication for symptoms. Patient denies any past medical history We will treat for allergic reaction to insect bite with prednisone, Pepcid, and Claritin. Recommend follow-up with PCP in 3 to 5 days. Patient is well- appearing, her vitals are within normal limits, she is stable for discharge ho me. Discussed signs and symptoms that should prompt immediate return to emergency department in detail patient who verbalizes understanding Critical care attestation.: If time is entered above; I have spent that time in minutes in the direct care of this critically ill patient, excluding procedure time. ED Disposition Clinical Impression: Allergic reaction to insect bite Disposition: HOME / SELF CARE / HOMELESS Is pt being admited?: No Condition: Stable Instructions: Bee, Wasp, or Hornet Sting, Adult Prescriptions: Loratadine [Claritin] 10 mg PO QDAY 7 Days #7 tablet Famotidine [Pepcid] 20 mg PO BID 7 Days #14 tablet Prednisone [predniSONE 10 mg (6-Day Pack, 21 Tabs)] 10 mg PO .TAPER #1 tab.ds.pk Referrals: PRIMARY CARE, [Referring] - 3-5 Days [facility] [Provider Group] - 3-5 Days Forms: Work/School Release Form(ED)
== END 2021-01-27 19:47 | disposition home or self-care (01) ==
LOC: ED 16:37
DX: T63.481A Toxic effect of venom of other arthropod, accidental (unintentional), initial encounter (principal); L29.9 Pruritus, unspecified; F17.200 Nicotine dependence, unspecified, uncomplicated; Y92.89 Other specified places as the place of occurrence of the external cause
CPT/HCPCS: 99282; J7512